=== PATIENT | male | born 1990 | race Asian ===

== ENCOUNTER 2022-09-25 21:43 | Emergency (ER) | payer OTHER ==
[~2022-09-25] VITALS: Ht 177.8 cm; Wt 81.6 kg
[2022-09-25 21:46] VITALS: BP 142/78
--- NOTE | 2022-09-25 21:56 | NUR ---
STEADY GAIT TO BED 4
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
--- NOTE | 2022-09-25 22:03 | NUR ---
Ramone lizama in [facility] - 09/25/22 at [id number] RUDD AT BEDSIDE
--- NOTE | 2022-09-25 22:07 | NUR ---
DR. ZHANG AT BEDSIDE
--- NOTE | 2022-09-25 22:19 | NUR ---
PT TAKEN TO RADIOLOGY
--- NOTE | 2022-09-25 22:36 | NUR ---
PT BACK FROM RADIOLOGY
--- NOTE | 2022-09-25 22:52 | NUR ---
DR ZHANG AT BEDSIDE EXPLAINING DC INFORMATION. NO FURTHER QUESTIONS FROM PT AT THIS TIME.
--- NOTE | 2022-09-25 22:53 | NUR ---
Patient discharged with v/s stable. Written and verbal after care instructions given and explained. Patient verbalized understanding. Ambulatory with steady gait. All questions addressed prior to discharge. Advised to follow up with PMD.
[2022-09-25 22:56] VITALS: BP 138/76
== END 2022-09-25 22:56 | disposition home or self-care (01) ==
LOC: MED 21:43
DX: S33.5XXA Sprain of ligaments of lumbar spine, initial encounter (principal); Z88.6 Allergy status to analgesic agent; V89.2XXA Person injured in unspecified motor-vehicle accident, traffic, initial encounter; Y93.89 Activity, other specified; Y92.89 Other specified places as the place of occurrence of the external cause; Y99.8 Other external cause status
CPT/HCPCS: 72110; 99283